=== PATIENT | female | born 1980 | race Caucasian/White ===

== ENCOUNTER 2016-02-18 05:29 | Day surgery (SDC) | payer BC ==
[2016-02-11 12:24] LABS: HEMATOCRIT 39.9 % (36.0-47.0); HEMOGLOBIN 13.6 g/dL (12.0-15.5); HGB HCT DIFFERENCE 0.9; MEAN CORPUSCULAR HEMOGLOBIN 29.6 pg (27.0-33.4); MEAN CORPUSCULAR HGB CONC 34.1 g/dL (32.0-36.0); MEAN CORPUSCULAR VOLUME 87 fl (80-97); RED CELL DISTRIBUTION WIDTH 12.5 % (11.5-14.0)
[2016-02-11 12:32] LABS: APPEARANCE,URINE CLEAR; BILIRUBIN,URINE NEGATIVE (NEGATIVE); GLUCOSE, URINE NEGATIVE (NEGATIVE); KETONES,URINE NEGATIVE (NEGATIVE); PROTEIN,URINE NEGATIVE (NEGATIVE); URINE SPECIFIC GRAVITY 1.017; UROBILINOGEN,URINE NEGATIVE mg/dL (<2.0)
[2016-02-11 12:33] LABS: BACTERIA,URINE 1+ /HPF; LEUKOCYTE ESTERASE,URINE NEGATIVE (NEGATIVE); NITRITE,URINE NEGATIVE (NEGATIVE); RBC,URINE 0-1 /HPF; WBC,URINE 0-1 /HPF
[~2016-02-18 05:29] MED LIST: CEFAZOLIN SODIUM 1 GM in DEXTROSE 5%-WATER 50 ML IV PRN; DEXTROSE 5%-1/2 NORMAL SALINE 1,000 ML IV PRN; LIDOCAINE 0.5% INJ-PF (5 MG/ML) 50 ML SDV INJ PRN; RINGERS SOLUTION,LACTATED 1,000 ML IV PRN
[2016-02-18] MEDS ORDERED: LIDOCAINE 0.5% INJ-PF (5 MG/ML) 50 ML SDV ONE (06:36)
[2016-02-18] MEDS ORDERED: BUPIVACAINE HCL 0.25 % INJ/PF (2.5 MG/1 ML) 30 ML VIAL ONE (06:36)
[2016-02-18] MEDS ORDERED: BACITRACIN INJ 50,000 UNIT VIAL ONE (06:37)
[2016-02-18] MEDS ORDERED: FENTANYL CITRATE INJ/PF 250 MCG/5 ML AMPULE ONE ×2 (06:47)
[2016-02-18] MEDS ORDERED: MIDAZOLAM 2 MG/2 ML INJ ONE (06:47)
[2016-02-18] MEDS ORDERED: ACETAMINOPHEN 100 ML IV ONE (06:48)
[2016-02-18] MEDS ORDERED: PROPOFOL INJ 200 MG/20 ML VIAL IV ONE (06:48)
[2016-02-18 07:08] LABS: ANION GAP 8 (5-19); BLOOD UREA NITROGEN 14 mg/dL (7-20); CALCIUM 9.7 mg/dL (8.4-10.2); CARBON DIOXIDE 30 mmol/L (22-30); CHLORIDE 104 mmol/L (98-107); CREATININE RESULT 0.79 mg/dL (0.52-1.25); GLUCOSE 92 mg/dL (75-110); POTASSIUM 4.2 mmol/L (3.6-5.0); SODIUM 142.1 mmol/L (137-145)
[2016-02-18] MEDS ORDERED: FAMOTIDINE INJ/PF 20 MG/2 ML SDV IV ONE (07:41)
[2016-02-18] MEDS ORDERED: SCOPOLAMINE HYDROBROMIDE 1.5 MG PATCH.TD72 ONE (07:43)
[2016-02-18] MEDS ORDERED: MORPHINE SULFATE 10 MG/ML INJ IV PRN (08:14)
[2016-02-18] MEDS ORDERED: MEPERIDINE HCL/PF INJ 25 MG/1 ML DISP.SYRIN IV PRN (08:14)
[2016-02-18] MEDS ORDERED: DIPHENHYDRAMINE HCL 50 MG/ML VIAL IV PRN (08:14)
[2016-02-18] MEDS ORDERED: FENTANYL CITRATE INJ/PF 100 MCG/2 ML AMPUL IV PRN ×3 (08:14)
[2016-02-18] MEDS ORDERED: OXYCODONE-ACETAMINOPHEN 5-325 MG TABLET PO PRN ×4 (08:14→11:13)
[2016-02-18] MEDS ORDERED: PROMETHAZINE HCL INJ 25 MG/1 ML VIAL IV PRN ×2 (08:14)
--- NOTE | 2016-02-18 09:31 | OPERATIVE REPORT E ---
Operative Report NAME: DEBBIE GREY : 1980 AGE: 35Y DATE OF SURGERY: 02/18/2016 ROOM: PREOPERATIVE DIAGNOSES: 1. ENDOMETRIOMA IN SCAR. 2. UMBILICAL HERNIA (TO BE REPAIRED BY DR. NIKKIE MOHAN) POSTOPERATIVE DIAGNOSES: 1. ENDOMETRIOMA IN SCAR. 2. UMBILICAL HERNIA (TO BE REPAIRED BY DR. NIKKIE MOHAN) SURGEON: LENIN JOE M.D. POTATO CHIP PROCESSING SUPERVISOR: Dr. Nikkie Mohan PROCEDURE: Excision of endometrioma from old scar. FINDINGS: There was approximately a 2 x 2 x 2 cm mass removed from the left third of the scar, with evidence of hemosiderin deposit in the fascial area. PROCEDURE: After general anesthesia, patient in the supine position. Abdomen was prepped and draped. A 3 cm portion of skin excised along the left third of the old *------* scar. This incision was carried down to the level of the fascia, excising the firm mass. At one point, an incision in the fascia revealed areas of hemosiderin deposit, and this area was further *------* and removed and excised from the operative field. Hemostasis was achieved with cautery. The fascial edges were then located and brought together with interrupted 0 Vicryl stitch. Subcutaneous was brought together with 3-0 plain stitch and the skin was closed with maryse. Blood loss for this portion of the procedure was approximately 30 mL. The skin maryse were used for the skin. Attention then directed to the umbilical hernia repair, by Dr. Mohan and his team. There were no complications with the endometrioma excision. DICTATING PHYSICIAN: LENIN JOE M.D. [id number] PHY#: [id number] ID: [id number] JOB#: [id number] ACCT: [id number] cc:LENIN JOE M.D. >
--- NOTE | 2016-02-18 09:45 | PDOC DISCHARGE SUMMARY ---
Discharge Summary (SDC) - Discharge Final Diagnosis: #1 umbilical hernia, symptomatic. #2 endometriosis in section scar. Date of Surgery: 02/18/16 Discharge Date: 02/18/16 Condition: Good Treatment or Instructions: #1 activities within moderation encouraged. Activity up to the level of walking encouraged. #2 follow up in my office by appointment in about 1 week. Call for appointment. #3 the wounds covered clean and dry until office visit. #4 hold off on school/work until evaluation in office. #5 may shower in 48 hours, keep operated area as dry as possible. #6 discharge from ambulatory to when ASU criteria met. #7 medications per medication reconciliation sheet. #8 prescriptions for Percocet and foot are normal. #9 an abdominal binder to be placed in the recovery room, and worn as much as possible. Prescriptions: Ketorolac Tromethamine [Toradol 10 mg Tablet] 10 mg PO Q8HP #9 tablet Oxycodone HCl/Acetaminophen [Percocet 5-325 mg Tablet] 1 tab PO ASDIR PRN #15 tab PRN Reason: Discharge Diet: As Tolerated Respiratory Treatments at Home: Deep Breathing/Coughing Discharge Activity: No Lifting Over 10 Pounds, Slowly Increase Activity Report the Following to Your Physician Immediately: Shortness of Breath, Unusual Bleeding
--- NOTE | 2016-02-18 09:52 | Operative Report ---
Operative Report DATE OF SURGERY: 02/18/16 PREOPERATIVE DIAGNOSIS: #1 symptomatic umbilical hernia. #2 endometriosis in section scar. POSTOPERATIVE DIAGNOSIS: #1 incarcerated umbilical hernia. Post repair. #2 endometriosis in section scar. Post excision. OPERATION: #1 reduction and repair of umbilical hernia with mesh. #2 excision of endometriosis and subcutaneous scar. This was done by Dr. Weeks. Dictated separately. SURGEON: NIKKIE ALMONTE WHEEL ROLLER: MAKI GARCIA ANESTHESIA: GA TISSUE REMOVED OR ALTERED: Not applicable. Please see Dr. Weeks note. COMPLICATIONS: None ESTIMATED BLOOD LOSS: 5 mL. INTRAOPERATIVE FINDINGS: Of an incarcerated umbilical hernia containing preperitoneal fat. This is reduced within the preperitoneal space using forceps and necessitating opening the incision by 1 cm. Originally 1.5 cm in diameter. Nice preperitoneal dissection done so as to accommodate the mesh. The mesh placed flat in the preperitoneal space and anchored using. Hemostasis secured very thoroughly in the preperitoneal space and in the subcutaneous space. PROCEDURE: After obtaining informed consent and going over the procedure with [the patient and her family], she was taken to the operating room, she was anesthetized and intubated. The abdomen was prepped and draped in the usual sterile fashion. After the universal timeout, in which it was verified that the patient received IV antibiotic, the procedure commenced. And incision was made, curvilinear around the inferior umbilicus about 5 cm in length. This is in reference to the palpation and marking of the abdominal wall bulge. Local anesthesia was infiltrated. Incision was made with a [15 blade scalpel]. Dissection now proceeded through the subcutaneous tissue down to the hernia sac and umbilical remnant. The umbilical remnant was transected about half a centimeter deep to the skin. The margins of the hernia were defined dissecting with cautery and scissor dissection as needed. The fascial margins were serially grasped with Russell clamps and elevated. The fascia was opened in the midline for about a centimeter in order to allow for reduction of the incarcerated preperitoneal fat. This facilitated [retroperitoneal dissection]. This was done circumferentially for at least [4 cm, in all directions]. This was facilitated by by using head lamp. Hemostasis was now secured in this space using monopolar cautery. The dimensions of the fascial defect were measured out. A mesh was selected of the size, sufficient to cover the hernia defect with at least a 3 cm overlap. The mesh was now deployed flat in the preperitoneal space. It was anchored and kept slightly taut. In this way circumferential control of the mesh was accomplished. The wound was irrigated with antibiotic containing solution. The mesh was anchored on either side in the fascia about 2 cm away from the fascial edge and using U stitches of 0 PDS. . Fascial closure, was now accomplished using a continuous suture of 0 PDS. This was done with bites 5 mm apart and 5 mm away from the fascial edge. This conforms to best practices for reduction of hernia recurrence. The subcutaneous tissues under it when it were now irrigated with antibiotic containing solution. The umbilical remnant was now sutured down to the fascial repair using a single 3-0 PDS suture. The subcutaneous tissues were closed using layers of interrupted 3- 0 PDS sutures. The skin was closed using a continuous suture of 4-0 Monocryl. This was reinforced with Steri-Strips over benzoin and a sterile dressing applied. Copies dictated operative report to Dr. Nikkie Mohan MD
[2016-02-18 11:27] VITALS: BP 112/71
[2016-02-18] MEDS ORDERED: GLYCOPYRROLATE INJ 0.4 MG/2 ML VIAL ONE (13:28)
[2016-02-18] MEDS ORDERED: DEXAMETHASONE SOD PHOSPHATE INJ 4 MG/1 ML VIAL ONE (13:28)
[2016-02-18] MEDS ORDERED: NEOSTIGMINE METHYLSULFATE 10 MG/10 ML VIAL ONE (13:28)
[2016-02-18] MEDS ORDERED: SUCCINYLCHOLINE CHLORIDE INJ 200 MG/10 ML VIAL ONE (13:28)
[2016-02-18] MEDS ORDERED: ROCURONIUM BROMIDE INJ 50 MG/5 ML VIAL IV ONE (13:28)
[2016-02-18] MEDS ORDERED: ONDANSETRON HCL INJ/PF 4 MG/2 ML SDV ONE (13:28)
[2016-02-18] MEDS ORDERED: LIDOCAINE 2% INJ-PF (20 MG/ML) 10 ML AMPUL ONE (13:28)
[2016-02-18] MEDS ORDERED: KETOROLAC TROMETHAMINE 60 MG/2 ML SDV ONE (13:28)
== END 2016-02-18 11:30 | disposition home or self-care (01) ==
LOC: OROUT 05:29
PROVIDERS: ATTEND Specialist
PROC: 0WUF0JZ Supplement Abdominal Wall with Synthetic Substitute, Open Approach (ICD-10-PCS; principal; 2016-02-18 07:30)
PROC: 0HB7XZZ Excision of Abdomen Skin, External Approach (ICD-10-PCS; 2016-02-18 07:30)
DX: K42.0 Umbilical hernia with obstruction, without gangrene (principal); N80.6 Endometriosis in cutaneous scar
CPT/HCPCS: 36415 ×2; 85027; 81025; 80048; 81001; 88304 ×2; 49587; 58999; J2250; J3490 ×4; J0690; J1100; J1885; J3010; J0330; J2405; J2704; S0028; J0131; 840